=== PATIENT | male | born 1985 | race Caucasian/White ===

== ENCOUNTER → 2020-02-20 15:36 | Outpatient (CLI) | payer OTHER, SELFPAY ==
[2020-02-22 06:14] LABS: COVID19 Sendout Not Detected (Not Detected)
== END ==
PROVIDERS: Visit Provider Registered Nurse
DX: Z20.828 Contact with and (suspected) exposure to other viral communicable diseases (principal)
CPT/HCPCS: 87635

== ENCOUNTER 2023-11-20 11:12 | Emergency (ER) | payer OTHER, SELFPAY ==
[2023-11-20 11:16] VITALS: BP 141/81; PULSE 61; RESP 18; TEMP 37; O2SAT 99; BMI 25.7
--- NOTE | 2023-11-20 12:40 | ED.SKABFB ---
HPI - Skin/Abscess/Foreign Bdy <Khari Galvan PA-C - Last Filed: 11/20/23 12:50> General Chief complaint: Skin/Abscess/Foreign Body Stated complaint: external hemmroid Time Seen by Provider: 11/20/23 11:24 Source: patient Mode of arrival: Ambulatory Limitations: no limitations History of Present Illness HPI narrative: 38-year-old male with past medical history hemorrhoids presents to the ED with 6 days of exacerbation of hemorrhoid. Patient states that he had a day of diarrhea with multiple bowel movements due to eating too many pickle beats, following which patient felt the external hemorrhoid enlarged come on, protruding out of the anus. Patient has since been doing Sitz baths, applying hydrocortisone cream, which Roula pads with minimal relief. Patient states that he is bowel movements are now normal and soft. Patient denies bloody stools, melena. Denies fever, chills, chest pain, shortness of breath, abdominal pain, pain with defecation. Patient states that he has had hemorrhoids in the past but not recently. Related Data Allergies Allergy/AdvReac Type Severity Reaction Status Date / Time No Known Drug Allergies Allergy Verified 11/20/23 11:16 Review of Systems <Khari Galvan PA-C - Last Filed: 11/20/23 12:50> Constitutional Constitutional: Denies chills, Denies fatigue, Denies fever(s), Denies frequent falls, Denies lethargy and Denies weakness Eyes Eyes: Denies change in vision, Denies eye discharge, Denies irritation and Denies loss of vision ENT Ears, Nose, Mouth, and Throat: Denies change in voice, Denies dizziness, Denies neck pain, Denies sore throat and Denies throat swelling Cardiovascular Cardiovascular: Denies chest pain, Denies irregular heart rhythm, Denies lightheadedness, Denies palpitations, Denies dyspnea, Denies dyspnea on exertion and Denies orthopnea Respiratory Respiratory: Denies cough, Denies dyspnea, Denies dyspnea on exertion and Denies wheezing Gastrointestinal Gastrointestinal: Denies abdominal pain, Denies change in bowel habits, Denies diarrhea, Denies nausea and Denies vomiting Comments: Hemorrhoid Musculoskeletal Musculoskeletal: Denies neck pain and Denies numbness Integumentary/Breasts Skin/Breast: Denies pruritus, Denies erythema, Denies rash and Denies wounds Neurologic Neurologic: Denies behavioral changes, Denies confusion, Denies dizziness, Denies frequent falls, Denies loss of vision, Denies numbness and Denies weakness Psychiatric Psychiatric: Denies anxiety, Denies behavioral changes, Denies confusion, Denies depression, Denies homicidal ideation and Denies suicidal ideation Endocrine Endocrine: Denies fatigue, Denies flushing and Denies palpitations Hematologic/Lymphatic Hematologic/Lymphatic: Denies easy bruising Allergic/Immunologic Allergic/Immunologic: Denies urticaria, Denies throat swelling and Denies wheezing Patient History <Khari Galvan PA-C - Last Filed: 11/20/23 12:50> Social History Smoking Status: Never smoker Smoking Status: Never smoker Exam <Khari Galvan PA-C - Last Filed: 11/20/23 12:50> Narrative Exam Narrative: Const General:?cooperative, healthy appearing and comfortable [facility] Head:?normal to inspection Ears:?hearing grossly normal bilaterally Nose:?external nose normal Face and sinus:?normal facial exam and sinuses nontender Mouth:?oral mucosae normal Throat:?posterior oropharynx normal Eyes General:?appearance normal, both eyes and all related structures Neck Neck:?normal visual inspection and no lymphadenopathy noted Resp Effort & Inspection:?normal respiratory effort Auscultation:?clear to auscultation bilaterally Cardio Rate:?regular rate Rhythm:?regular rhythm GI Prolapsed hemorrhoid visualized on exam, not thrombosed. Neuro General:?patient alert, patient awake and patient oriented x3 Initial Vital Signs Initial Vital Signs: Vital Signs Temperature 98.6 F 11/20/23 11:16 Pulse Rate 61 11/20/23 11:16 Respiratory Rate 18 11/20/23 11:16 Blood Pressure 141/81 H 11/20/23 11:16 Pulse Oximetry 99 11/20/23 11:16 Oxygen Delivery Method Room Air 11/20/23 11:16 <Peter Jeter MD - Last Filed: 11/20/23 18:44> Initial Vital Signs Initial Vital Signs: Vital Signs Temperature 98.6 F 11/20/23 11:16 Pulse Rate 61 11/20/23 11:16 Respiratory Rate 18 11/20/23 11:16 Blood Pressure 141/81 H 11/20/23 11:16 Pulse Oximetry 99 11/20/23 11:16 Oxygen Delivery Method Room Air 11/20/23 11:16 Course <Khari Galvan PA-C - Last Filed: 11/20/23 12:50> Vital Signs Vital signs: Vital Signs - 8 hr 11/20/23 11:16 Temperature 98.6 F Pulse Rate 61 Respiratory Rate 18 Blood Pressure 141/81 H Pulse Oximetry 99 Oxygen Delivery Method Room Air <ePter Jeter MD - Last Filed: 11/20/23 18:44> Vital Signs Vital signs: Vital Signs - 8 hr 11/20/23 11:16 Temperature 98.6 F Pulse Rate 61 Respiratory Rate 18 Blood Pressure 141/81 H Pulse Oximetry 99 Oxygen Delivery Method Room Air MDM - Skin/Abscess/Foreign Bdy <Khari Galvan PA-C - Last Filed: 11/20/23 12:50> [facility] Narrative Medical decision making narrative: 38-year-old male with past medical history hemorrhoids presents to the ED with 6 days of exacerbation of hemorrhoid. History and physical exam consistent with prolpased hemorrhoid. Not thrombosed. Recommend continuing Sitz baths, hemorrhoid cream, which Roula. Also recommend increasing fiber intake, water. Recommend MiraLax to keep stools soft. Also recommend putting a stool in front of the toilet to rest the feet on when having bowel movements to reduce straining. Recommend follow-up with PCP as soon as possible. ED return precautions discussed with patient. Patient verbalized understanding. Medical records reviewed: Yes <Peter Jeter MD - Last Filed: 11/20/23 18:44> [facility] Narrative Medical decision making narrative: 38-year-old male with past medical history hemorrhoids presents to the ED with 6 days of exacerbation of hemorrhoid. History and physical exam consistent with prolpased hemorrhoid. Not thrombosed. Recommend continuing Sitz baths, hemorrhoid cream, which Roula. Also recommend increasing fiber intake, water. Recommend MiraLax to keep stools soft. Also recommend putting a stool in front of the toilet to rest the feet on when having bowel movements to reduce straining. Recommend follow-up with PCP as soon as possible. ED return precautions discussed with patient. Patient verbalized understanding. Medical records reviewed: Yes I was immediately available in the department for consultation. Documentation has been reviewed. I agree with assessment and plan. Discharge Plan Departure Patient Disposition: Home Clinical Impression: Hemorrhoids Qualifiers: Hemorrhoid type: unspecified Qualified Code(s): K64.9 - Unspecified hemorrhoids Instructions: DI for Hemorrhoids Activity Restrictions/Additional Instructions: Were evaluated in the ED today for hemorrhoids. You do have an external hemorrhoid. You may continue to take the Sitz baths, use the hydrocortisone cream, which Roula pads. In addition, please ensure adequate fiber intake, water to keep the stool soft. Please minimize straining during a bowel movement by using a step stool to put your feet on in front of the toilet. You may also take MiraLax nightly to keep the stool soft for the next 3-4 weeks. Please follow-up with your PCP as soon as possible. Return to the ED if you have worsening symptoms. Stand Alone Forms: Patient Portal/API
== END 2023-11-20 12:26 | disposition home or self-care (01) ==
PROVIDERS: Emergency Provider Student in an Organized Health Care Education/Training Program
DX: K64.9 Unspecified hemorrhoids (principal)
CPT/HCPCS: 99281